=== PATIENT | male | born 2000 | race Caucasian/White ===

== ENCOUNTER 2025-04-22 14:09 | Emergency (ER) | payer BC, SELFPAY ==
--- NOTE | ~2025-04-22 | XR_ITS ---
EXAMINATION: XR wrist RT min 3V DATE: 04/22/2025 14:32 INDICATION: Trauma. TECHNIQUE: 3 views of the right wrist were obtained. COMPARISON: None. FINDINGS: No acute fractures or dislocations at the right wrist. Mild soft tissue swelling on the dorsum of the wrist. Intercarpal spaces are normal. IMPRESSION: 1. No acute bony lesions. Mild soft tissue swelling on the dorsal aspect. Repeat x-rays suggested if symptoms are localized and persistent after a few days. Reviewed, dictated and finalized at location T. 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 No acute bony lesions. Mild soft tissue swelling on the dorsal aspect. Repea t x-rays suggested if symptoms are localized and persistent after a few days.
[2025-04-22 14:25] VITALS: BP 136/74; PULSE 115; RESP 16; TEMP 37.5; O2SAT 100
[2025-04-22] MEDS: IBUPROFEN 400 MG TABLET 800 MG PO (15:07)
--- NOTE | 2025-04-22 15:08 | ED_ITS ---
HPI - General Adult General Chief complaint: Extremity Injury, Upper Stated complaint: Wrist Pain Source: patient Mode of arrival: ambulatory Limitations: no limitations History of Present Illness HPI narrative: Patient presents for evaluation of right wrist pain. Symptom onset last night. He was at a work function consuming alcohol and was punching a punching bag repeatedly. He now states the pain is severe in the right wrist, rated 10/10 in severity. He has not taken any medication for symptoms. Movement makes his symptoms worse. Denies any paresthesias. He is right-hand dominant. Related Data Allergies Allergy/AdvReac Type Severity Reaction Status Date / Time No Known Allergies Allergy Verified 04/22/25 14:26 Review of Systems Review of Systems: CONSTITUTIONAL: Denies fever, chills, or sweats. EYES: Denies visual changes, redness, or discharge. ENT: Denies rhinorrhea, congestion, sore throat, or otalgia. CARDIOVASCULAR: Denies chest pain, palpitations, or edema. RESPIRATORY: Denies cough or dyspnea. GASTROINTESTINAL: Denies abdominal pain, nausea, vomiting, or diarrhea. GENITOURINARY: Denies dysuria or hematuria. SKIN: Denies rash or itching. MUSCULOSKELETAL: Reports right wrist pain and swelling NEUROLOGIC: Denies headache, numbness, dizziness, or weakness. PSYCHIATRIC: Denies anxiety or depression. PMFSH Past Medical History Medical History No pertinent past medical history Surgical History Surgical History No pertinent past surgical history Family History Family History Mother Family history non-contributory Social History Social History (Updated 04/22/25 @ 15:10 by Liban Lockhart APRN, [facility]) Alcohol intake: current Gender identity (if verbalized by the patient): Male Spiritual care concerns: No Exam Narrative: GENERAL: Well-appearing, well-nourished, and in no acute distress. HEAD: Normocephalic, atraumatic. EYES: PERRLA and EOMI. ENT: Nares clear, no rhinorrhea or epistaxis. Mucous membranes moist. Oropharynx without tonsillar hypertrophy exudate or other lesions. Bilateral TMs pearly sánchez nonbulging NECK: Supple. No adenopathy or masses. No carotid bruits or JVD CHEST: Clear to auscultation. No respiratory distress. No wheezes rales or rhonchi HEART: Regular rate and rhythm. No murmur heard. Normal peripheral pulses. ABDOMEN: Soft, nontender, nondistended, normal active bowel sounds. EXTREMITIES: there is soft tissue swelling to the right wrist. There is tenderness throughout the right wrist. No crepitus or deformity. Decreased ROM of right wrist. 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 5/5 hand it desktop support technician strength on the left. SKIN: Warm, dry, no rash. NEURO: No focal deficits. Alert and oriented x3. PSYCH: Normal mood and affect. Course Course Emergency Course: This is a 25-year-old male who presented for evaluation of a right wrist injury. X-ray negative for fracture. Recommended ibuprofen for pain. First dose given here. Recommend purchase and wearing a Velcro wrist splint. Unfortunately we do not have those here. He is placed in Bruno wrap and provided with a sling. Advised on RICE therapy. He should follow up with primary care provider this week to determine whether additional imaging clinically warranted. Go to the emergency department for intractable pain or loss of range of motion. Patient in agreement with plan of care. Level of Care: Express Care Visit Vital Signs Vital signs: Vital Signs Temperature 37.5 C 04/22/25 14:25 Pulse Rate 115 H 04/22/25 14:25 Respiratory Rate 16 04/22/25 14:25 Blood Pressure 136/74 04/22/25 14:25 Pulse Oximetry 100 04/22/25 14:25 Temperature 37.5 C 04/22/25 14:25 Pulse Rate 115 H 04/22/25 14:25 Respiratory Rate 16 04/22/25 14:25 Blood Pressure 136/74 04/22/25 14:25 Pulse Oximetry 100 04/22/25 14:25 MDM Differential Diagnosis Differential Diagnosis: Distal radius fracture versus distal ulnar fracture versus sprain versus strain versus other Imaging Data Radiologist's impression: ITS Impressions Wrist X-Ray 04/22/25 14:33 IMPRESSION: 1. No acute bony lesions. Mild soft tissue swelling on the dorsal aspect. Repeat x-rays suggested if symptoms are localized and persistent after a few days. Discharge Plan Discharge Clinical Impression: Right wrist sprain Patient Disposition: Home Condition: Stable Instructions: Antibiotic Form, Wrist Sprain (ED) Additional Instructions: Please purchase and wear a Velcro wrist splint Ibuprofen should help with pain and swelling Keep your arm elevated using the sling Application of ice should also help with pain and swelling Please follow up with primary care this coming week. If your swelling and pain persist, you may need a repeat x ray or other imaging modality Patient Language: Divehi Prescriptions: New ibuprofen 800 mg tablet 800 mg PO TID PRN (Reason: pain) Qty: 30 0RF Follow-up/Referrals: Morales John MD [Physician, Family Practice] Time of Disposition: 15:07
== END 2025-04-22 15:21 | disposition home or self-care (01) ==
PROVIDERS: Emergency Provider Nurse Practitioner
DX: S63.501A Unspecified sprain of right wrist, initial encounter (principal); W22.8XXA Striking against or struck by other objects, initial encounter
CPT/HCPCS: 73110; 99203; A4565; A9270; G0463